=== PATIENT | female | born 1950 | race Native Hawaiian/Other Pacific Islander ===

== ENCOUNTER 2017-08-17 09:22 | Day surgery (SDC) | payer MEDICAID ==
[2017-08-14 10:09] VITALS: BMI 25.0
[2017-08-17 11:36] LABS: BLOOD UREA NITROGEN 11 mg/dL (7-21); CALCIUM 9.4 mg/dL (8.4-10.5); GFR AFRICAN-AMERICAN > 60; GFR NON-AFRICAN AMERICAN > 60
[2017-08-17] MEDS ORDERED: Propofol 10 mg/ml Inj (20 ML) ONE (12:43)
[2017-08-17] MEDS ORDERED: Sodium Chloride 0.9% 1,000 ML IV SCH (13:15)
[2017-08-17 13:42] VITALS: RESP 18
[2017-08-17 14:15] VITALS: BP 131/67; PULSE 58; TEMP 98.7; O2SAT 99
--- NOTE | 2017-08-17 16:16 | CARD ---
APPROVED REPORT EKG Measurement Heart [id number] IN 132P26 [id number] <Conclusion> Sinus rhythm with frequent premature ventricular complexes in a pattern of bigeminy Minimal voltage criteria for LVH, may be normal variant Prolonged QT
--- NOTE | 2017-08-17 16:19 | CARD ---
APPROVED REPORT EKG Measurement Heart [id number] AL 138P16 [id number] <Conclusion> Sinus rhythm with frequent premature ventricular complexes in a pattern of bigeminy Minimal voltage criteria for LVH
== END 2017-08-17 14:31 | disposition home or self-care (01) ==
LOC: ENDO 09:22
PROVIDERS: ATTEND Internal Medicine
DX: Z12.11 Encounter for screening for malignant neoplasm of colon (principal); K57.30 Diverticulosis of large intestine without perforation or abscess without bleeding; K64.8 Other hemorrhoids
CPT/HCPCS: 36415; 45378; 80048; 83735; 93005; J2001; J2704; J7030; J7040